=== PATIENT | male | born 1955 | race Hispanic/Latino ===

== ENCOUNTER 2018-09-12 21:05 | Emergency (ER) | payer BC ==
[2018-09-12] MEDS ORDERED: Cyclobenzaprine 10 MG TAB ONE (21:33)
== END 2018-09-12 21:41 | disposition home or self-care (01) ==
LOC: SCSER 21:05
DX: S46.911A Strain of unspecified muscle, fascia and tendon at shoulder and upper arm level, right arm, initial encounter (principal); I10 Essential (primary) hypertension; E78.00 Pure hypercholesterolemia, unspecified; E11.9 Type 2 diabetes mellitus without complications; Z79.4 Long term (current) use of insulin; Z79.899 Other long term (current) drug therapy; X50.9XXA Other and unspecified overexertion or strenuous movements or postures, initial encounter
CPT/HCPCS: 99283